=== PATIENT | female | born 2000 | race Caucasian/White ===

== ENCOUNTER 2019-10-20 23:17 | Emergency (ER) | payer MEDICAID ==
[2019-10-20 23:29] VITALS: BP 124/66; PULSE 111
[2019-10-20] MEDS ORDERED: Ondansetron 4 MG Tab.DIS PO ONE (23:40)
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
== END 2019-10-21 00:25 | disposition home or self-care (01) ==
LOC: JP.ED 23:17
DX: N39.0 Urinary tract infection, site not specified (principal); Z79.899 Other long term (current) drug therapy
CPT/HCPCS: 36415; 81001; 85027; 87086; 87088; 87186; 99284; A9270; 99283

== ENCOUNTER 2020-10-30 13:07 | Emergency (ER) | payer MEDICAID ==
[2020-10-30 13:36] VITALS: BP 120/79; PULSE 84
--- NOTE | 2020-10-30 15:43 | CRLCR ---
INDICATION: Chest pain with deep breathing. TECHNIQUE: Chest 2 views. COMPARISON: None. FINDINGS: No focal consolidation, pleural effusion, or pneumothorax. Normal heart size and pulmonary vascularity. The bones are unremarkable. IMPRESSION: No acute cardiopulmonary findings. Dictated by Jillian Khanna MD @ 10/30/2020 3:42:[address] Jillian Khanna @ Oct 30 2020 3:42PM
[2020-10-30] MEDS ORDERED: Ketorolac 60 MG/2 ML SDV IM ONE (16:12)
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
== END 2020-10-30 16:33 | disposition home or self-care (01) ==
LOC: JP.ED 13:07
DX: R07.89 Other chest pain (principal)
CPT/HCPCS: 36415; 71046; 85025; 96372; 99283; 99285-25; J1885

== ENCOUNTER 2021-09-11 19:41 | Emergency (ER) | payer MEDICAID ==
[2021-09-11 20:07] VITALS: BP 120/68; PULSE 88
== END 2021-09-11 20:42 | disposition home or self-care (01) ==
LOC: JP.ED 19:41
DX: O21.9 Vomiting of pregnancy, unspecified (principal); O99.891 Other specified diseases and conditions complicating pregnancy; M54.50 Low back pain, unspecified; R30.0 Dysuria; Z3A.18 18 weeks gestation of pregnancy
CPT/HCPCS: 81001; 87086; 99283; 99284

== ENCOUNTER 2024-11-07 12:22 | Emergency (ER) | payer MEDICAID ==
[2024-11-07] MEDS: fentaNYL 50 MCG/ML SDV IVPUSH ONE (12:48)
[2024-11-07] MEDS: Ondansetron 4 MG/2 ML SDV IVPUSH ONE (12:50)
[2024-11-07 12:52] LABS: BASOPHILS ABSOLUTE AUTO 0.03 K/uL (0.00-0.10); BASOPHILS PERCENT AUTO 0.3 % (0.1-1.3); EOSINOPHILS ABSOLUTE AUTO 0.05 K/uL (0.00-0.40); EOSINOPHILS PERCENT AUTO 0.5 % (0.0-5.4); HEMATOCRIT 41.6 % (34.3-46.0); HEMOGLOBIN 13.8 g/dL (11.2-15.5); IMMATURE GRAN ABSOLUTE AUTO 0.04 K/uL (0.00-0.23); IMMATURE GRAN PERCENT AUTO 0.4 % (0.0-0.7); LYMPHOCYTES ABSOLUTE AUTO 1.73 K/uL (0.8-3.3); LYMPHOCYTES PERCENT AUTO 15.6 % (11.4-47.7); MEAN CORPUSCULAR HEMOGLOBIN 29.5 pg (31.6-35.5); MEAN CORPUSCULAR HGB CONC 33.2 g/dL (31.6-35.5); MEAN CORPUSCULAR VOLUME 88.9 fL (81.4-99.0); MONOCYTES ABSOLUTE AUTO 0.45 K/uL (0.20-0.90); MONOCYTES PERCENT AUTO 4.1 % (3.3-12.6); NEUTROPHILS ABSOLUTE AUTO 8.76 K/uL (1.0-7.6); NEUTROPHILS PERCENT AUTO 79.1 % (40.0-78.1); PLATELET COUNT,PLT 224 K/uL (130-375); RED BLOOD CELL COUNT 4.68 M/uL (3.77-5.24); WHITE BLOOD CELL COUNT,WBC 11.1 K/uL (3.2-11.0)
[2024-11-07] MEDS: Sodium Chloride 0.9% 1,000 ML IV ONE (12:52)
[2024-11-07 13:11] LABS: APPEARANCE,URINE SLIGHTLY CLOUDY (CLEAR); BILIRUBIN,URINE NEGATIVE (NEGATIVE); COLOR,URINE YELLOW (YELLOW); GLUCOSE,URINE NEGATIVE (NEGATIVE); KETONES,URINE 40 mg/dL (NEGATIVE); LEUKOCYTE ESTERASE,URINE NEGATIVE (NEGATIVE); NITRITE,URINE NEGATIVE (NEGATIVE); OCCULT BLOOD,URINE LARGE (NEGATIVE); PROTEIN,URINE 30 mg/dL (NEGATIVE)
[2024-11-07 13:13] LABS: A/G RATIO 1.3 (1.2-2.2); ALANINE AMINOTRANSFERASE,ALT 23 U/L (12-78); ALKALINE PHOSPHATASE 86 U/L (46-116); ANION GAP 13.4 mmol/L (5.0-14.0); ASPARTATE AMNIOTRANSFERASE,AST 15 U/L (15-37); BILIRUBIN TOTAL 0.6 mg/dL (0.2-1.0); BLOOD UREA NITROGEN,BUN 12 mg/dL (7-18); C-REACTIVE PROTEIN < 0.50 mg/dL (<0.50); CALCIUM 9.1 mg/dL (8.5-10.1); CARBON DIOXIDE,CO2 27 mmol/L (21-32); CHLORIDE,CL 104 mmol/L (100-108); EST CRCL DRUG DOSING (CG) 84.36 mL/min; ESTIMATED GFR 81 mL/min (>60); GLUCOSE RANDOM 115 mg/dL (74-106); POTASSIUM,K 3.4 mmol/L (3.6-5.2); SODIUM,NA 141 mmol/L (140-148)
[2024-11-07 13:16] LABS: LACTIC ACID 2.7 mmol/L (0.4-2.0)
[2024-11-07 13:23] LABS: AMORPHOUS SEDIMENT,URINE NOT SEEN; BACTERIA,URINE RARE; EPITHELIAL CELLS,URINE MANY; MUCUS,URINE FEW; RBC,URINE 50-75 (0-5); WBC,URINE 0-5 (0-5)
[2024-11-07 14:32] VITALS: BP 98/47; PULSE 49
== END 2024-11-07 14:53 | disposition home or self-care (01) ==
LOC: JP.ED 12:22
DX: N12 Tubulo-interstitial nephritis, not specified as acute or chronic (principal)
CPT/HCPCS: 36415; 74176; 80053; 81001; 81025; 83605; 83690; 85025; 86140; 96361; 96374; 96375; 99284; J2405; J3010; J7030